=== PATIENT | female | born 1965 | race African-American/Black ===

== ENCOUNTER → 2019-04-04 | Outpatient (CLI) | payer MEDICARE | LOC: SLEEP 16:24 | PROVIDERS: ATTEND Internal Medicine | DX: R40.0 Somnolence (principal); R06.83 Snoring | CPT/HCPCS: 95810 ==

== ENCOUNTER → 2019-11-13 | Outpatient (CLI) | payer MEDICARE, OTHER | LOC: EDSEX → SLEEP 19:29 | DX: G47.33 Obstructive sleep apnea (adult) (pediatric) (principal) | CPT/HCPCS: 95811 ==